=== PATIENT | female | born 1930 | race Two or more races ===

== ENCOUNTER 2016-09-02 10:22 | Emergency (ER) | payer SELFPAY ==
[~2016-09-02] VITALS: Ht 167.6 cm; Wt 64.4 kg
[2016-09-02 10:22] VITALS: BP 144/85
[2016-09-02] MEDS ORDERED: FAMOTIDINE/PF INJ 20 MG/2 ML VIAL IV ONE (10:30)
--- NOTE | 2016-09-02 10:32 | NUR ---
TRIED TO DO AN EKG. PT REFUSED AND SAID THAT THEY WOULD LIKE TO GO TO [facility].
--- NOTE | 2016-09-02 10:44 | NUR ---
Patient does not wish to proceed with medical care recommended by Dr. Jorgensen. Patient given information related to possible complications, up to and including , which could occur as a result of leaving the hospital at this time. Patient verbalizes understanding of risks involved due to leaving against medical advice. Patient has signed AMA form.
== END 2016-09-02 10:45 | disposition left against medical advice (07) ==
LOC: ER 10:23
DX: R07.89 Other chest pain (principal); Z88.0 Allergy status to penicillin; Z88.2 Allergy status to sulfonamides
CPT/HCPCS: 93005; 99283; A4606; Z7610